=== PATIENT | male | born 1975 | race Caucasian/White ===

== ENCOUNTER 2018-12-16 07:49 | Emergency (ER) | payer OTHER ==
[2018-12-16 07:56] VITALS: BP 148/77
--- NOTE | 2018-12-16 08:30 | ED Physician Documentation ---
PD HPI DYSPNEA - Stated complaint Stated Complaint: SOA/ASTHMA - Chief complaint Chief Complaint: Resp - History obtained from History obtained from: Patient - History of Present Illness Timing - onset: How many days ago (4) Timing - onset during: Rest Timing - duration: Days (4) Timing - details: Gradual onset, Still present Inciting event(s): URI Improved by: Inhaler/neb Worsened by: Exertion, Coughing Associated symptoms: Cough, Wheezing Similar symptoms before: Diagnosis (asthma exacerbation) Recently seen: Not recently seen - Additional information Additional information: 43-year-old male with moderate persistent asthma has developed increasing his symptoms over the past 4 days. He is developed a cough he has some light yellow phlegm some sinus pressure nasal congestion and increased wheezing. He is on some fluticasone and albuterol. Review of Systems Constitutional: denies: Fever, Fatigue Eyes: denies: Decreased vision Ears: reports: Loss of hearing. denies: Ear pain Nose: reports: Rhinorrhea / runny nose, Congestion, Sinus pressure / pain Throat: denies: Sore throat Cardiac: denies: Chest pain / pressure, Palpitations Respiratory: reports: Dyspnea, Cough, Wheezing GI: denies: Abdominal Pain, Nausea, Vomiting : denies: Dysuria, Frequency Skin: denies: Rash PD PAST MEDICAL HISTORY - Past Medical History Past Medical History: No Respiratory: Asthma Other Past Medical History: Roberta's - Past Surgical History Past Surgical History: No - Present Medications Home Medications: Ambulatory Orders Medication Instructions Recorded Confirmed Albuterol 2.5 mg INH Q4H PRN 12/16/18 12/16/18 Azithromycin [Zithromax] 250 mg PO DAILY #6 tablet 12/16/18 Fluticasone/Salmeterol [Advair 1 each IH 12/16/18 100-50 Diskus] Levothyroxine [Synthroid] 150 mcg PO QDAC 12/16/18 12/16/18 Montelukast Sodium [Singulair] 4 mg PO 12/16/18 predniSONE [Prednisone] 40 mg PO DAILY #10 tablet 12/16/18 - Allergies Allergies/Adverse Reactions: Allergies Allergy/AdvReac Type Severity Reaction Status Date / Time No Known Drug Allergies Allergy Verified 12/16/18 07:56 - Social History Does the pt smoke?: No Smoking Status: Never smoker Does the pt drink ETOH?: No Does the pt have substance abuse?: No - Immunizations Immunizations are current?: Yes - POLST Patient has POLST: No PD ED PE NORMAL - Vitals Vital signs reviewed: Yes (hypertensive mild ) - General General: Alert and oriented X 3, No acute distress, Well developed/nourished - HEENT HEENT: Atraumatic, PERRL, EOMI, Other (left TM is clear the right is obscured by cerumen) - Neck Neck: Supple, no meningeal sign, No bony TTP - Cardiac Cardiac: RRR, No murmur - Respiratory Respiratory: No respiratory distress, Other (mild tight wheezes) - Abdomen Abdomen: Soft, Non tender - Back Back: No CVA TTP, No spinal TTP - Derm Derm: Normal color, Warm and dry, No rash - Extremities Extremities: No deformity, No edema - Neuro Neuro: Alert and oriented X 3, hose tubing backer 2-12 intact, No motor deficit, No sensory deficit, Normal speech Eye Opening: Spontaneous Motor: Obeys Commands Verbal: Oriented GCS Score: 15 - Psych Psych: Normal mood, Normal affect Results - Vitals Vitals: Vital Signs - 24 hr 12/16/18 07:52 Temperature 36.9 C Heart Rate 63 Respiratory 18 Rate Blood Pressure 148/77 H O2 Saturation 99 Oxygen O2 Source Room air Procedures - General procedure General procedure: Right ear irrigation: The ear is instilled with mineral oil followed by irrigation with saline with removal of a cerumen block. Following irrigation examination of the right TM shows erythema and distortion of landmarks. PD MEDICAL DECISION MAKING - ED course Complexity details: re-evaluated patient, considered differential, d/w patient ED course: 43-year-old male with moderate persistent asthma has an exacerbation and on exam otitis media. He is administered a DuoNeb treatment here and will place him on a course of prednisone and azithromycin. Departure - Departure Disposition: 01 Home, Self Care Clinical Impression: Asthma exacerbation Qualifiers: Asthma severity: moderate Asthma persistence: persistent Qualified Code(s): J45.41 - Moderate persistent asthma with (acute) exacerbation Otitis media Qualifiers: Otitis media type: suppurative Chronicity: acute Laterality: right Recurrence: non-recurrent Spontaneous tympanic membrane rupture: without spontaneous rupture Qualified Code(s): H66.001 - Acute suppurative otitis media without spontaneous rupture of ear drum, right ear Condition: Stable Instructions: ED Otitis Media Acute Adult, ED Reactive Airway Disease Follow-Up: Shannon Parker MD [Primary Care Provider] - Prescriptions: Azithromycin [Zithromax] 250 mg PO DAILY #6 tablet predniSONE [Prednisone] 40 mg PO DAILY #10 tablet
[2018-12-16] MEDS ORDERED: IPRATROPIUM/ALBUTEROL 3 ML NEB INH STA (08:37)
== END 2018-12-16 09:35 | disposition home or self-care (01) ==
LOC: ED 07:49
DX: J45.41 Moderate persistent asthma with (acute) exacerbation (principal); H66.001 Acute suppurative otitis media without spontaneous rupture of ear drum, right ear; H61.21 Impacted cerumen, right ear
CPT/HCPCS: 69209; 94640; 99283; 99284